=== PATIENT | female | born 1965 | race Caucasian/White ===

== ENCOUNTER 2018-08-04 02:29 | Inpatient (IN) | payer OTHER ==
[~2018-08-04] VITALS: Ht 157.5 cm; Wt 54.4 kg
[~2018-08-04 02:29] MED LIST: AMLO5TAB4 PO; BENA20TA9 PO; DIPH25CA83 PO; ESCI10TA PO; FAMO20TA8 PO; GABA-536 PO; HYDR-4354 PO; LIPA1CAP8; LIPA1CAP8 PO; ONDA4TAB10; QUET25TA PO
--- NOTE | 2018-08-04 09:57 | NUR ---
ADMISSION NOTE PT ARRIVED AT THIS TIME VIA [place], A/O X4, BREATHING EVEN AND UNLABORED, NO S/S OF ANY DISTRESS OR PAIN, IV IS PATENT AND INTACT, PT IS AMBULATORY, SAFETY PRECAUTIONS IN PLACE, CALL LIGHT WITHIN REACH, WILL MONITOR ACCORDINGLY.
[2018-08-04 10:30] VITALS: BP 137/89
[2018-08-04] MEDS ORDERED: ACETAMINOPHEN 325 MG TABLET PO PRN (11:30)
[2018-08-04] MEDS ORDERED: GABAPENTIN 400 MG CAPSULE PO PRN (11:30)
[2018-08-04] MEDS ORDERED: Z GUARD REMEDY 2 OZ OINT TP PRN (11:30)
[2018-08-04] MEDS ORDERED: ONDANSETRON HCL/PF 4 MG/2 ML VIAL IVP PRN (11:30)
[2018-08-04] MEDS: IV NS 0.9% 1,000 ML IV PRN ×2 (11:55→20:23)
[2018-08-04] MEDS: PANTOPRAZOLE 40 MG TABLET.DR PO SCH (11:58)
[2018-08-04] MEDS: AMYLASE/LIPASE/PROTEASE 1 CAP CAPSULE.DR PO SCH ×2 (12:44→17:00)
[2018-08-04] MEDS: BENAZEPRIL HCL 20 MG TABLET PO SCH (16:21)
[2018-08-04] MEDS: ENOXAPARIN SODIUM 40 MG/0.4 ML DISP.SYRIN SQ SCH (16:22)
[2018-08-04] MEDS: HYDROMORPHONE INJ 2 MG/ML DISP.SYRIN IV PRN ×2 (17:32→21:40)
--- NOTE | 2018-08-04 18:17 | NUR ---
RN CLOSING NOTE PT IN BED AT LOWEST AND LOCKED POSITION WITH SIDE RAILS UP X2, AWAKE AND ALERT X4 BREATHING EVEN LABORED ON RA WITH NO S/S OF ANY DISTRESS OR PAIN, IV IS PATENT AND INTACT, AWAITING GI CONSULT, SAFETY PRECAUTIONS IN PLACE, CALL LIGHT WITHIN REACH, ALL NEEDS ATTENDED TO, WILL ENDORSE TO MICROBIOLOGY MANAGER RN FOR KAREN.
--- NOTE | 2018-08-04 19:15 | NUR ---
RN PM OPENING NOTE PT WAS RECEIVED BEDSIDE REPORT RECIEVED FROM ANNABELLE LACY. BED IN LOWEST AND LOCKED POSITION WITH SIDE RAILS X2, A/O X4 BREATHING EVEN AND UNLABORED ON RA, NO S/S OF ANY DISTRESS. POC REVIEWED QUESTIONS CONCERNS ADDRESSED. IV IS PATENT AND INTACT, SAFETY PRECAUTIONS IN PLACE, CALL LIGHT WITHIN REACH. PATIENT VERBALIZED UNDERSTANDING TO CALL FOR ASSISTANCE IF NEEDED.
[2018-08-04 20:26] VITALS: BP 120/79
[2018-08-04] MEDS: FAMOTIDINE (20 MG) 20 MG TABLET PO SCH (21:38)
[2018-08-05] MEDS: HYDROMORPHONE INJ 2 MG/ML DISP.SYRIN IV PRN ×5 (03:49→22:30)
[2018-08-05] MEDS: IV NS 0.9% 1,000 ML IV PRN ×2 (03:49→18:23)
--- NOTE | 2018-08-05 06:30 | NUR ---
RN CLOSING NOTES PT IN BED AT LOWEST AND LOCKED POSITION WITH SIDE RAILS UP X2, BREATHING EVEN AND UNLABORED AWAKE AND ALERT X4 WITH NO S/S OF ANY PAIN OR DISTRESS NOTED AT THIS TIME, IV IS PATENT AND INTACT, PT RESTING COMFORTABLY IN BED, SEEN WITH EYES CLOSED. CALL LIGHT WITHIN REACH.
[2018-08-05 06:32] LABS: BASOPHILS % (AUTO) 0.9 % (0.0-2.0); EOSINOPHILS % (AUTO) 1.5 % (0.0-6.0); HEMATOCRIT 32 % (33-45); HEMOGLOBIN 10.7 g/dL (11.5-14.8); LYMPHOCYTES # (AUTO) 1.8 /CMM (0.8-4.8); LYMPHOCYTES % (AUTO) 45.1 % (20.0-44.0); MEAN CORPUSCULAR HGB CONC 33 g/dl (31.0-36.0); MEAN CORPUSCULAR VOLUME 91 fL (82-100); MONOCYTES # (AUTO) 0.4 /CMM (0.1-1.30); MONOCYTES % (AUTO) 8.8 % (2.0-12.0); NEUTROPHILS # (AUTO) 1.8 /CMM (1.8-8.9); NEUTROPHILS % (AUTO) 43.7 % (43.0-81.0); PLATELET COUNT (AUTO) 169 /CMM (150-450); WHITE BLOOD COUNT (AUTO) 4.1 K/uL (4.3-11.0)
[2018-08-05 06:53] LABS: THYROID STIMULATING HORMONE 0.569 uIU/mL (0.358-3.74)
[2018-08-05 07:05] LABS: ALBUMIN 3.1 g/dL (3.4-5.0); BILIRUBIN,TOTAL 0.7 mg/dL (0.2-1.0); CALCIUM, SERUM 8.8 mg/dL (8.5-10.1); CREATININE 0.8 mg/dL (0.6-1.3); MAGNESIUM 1.9 mg/dL (1.8-2.4); PHOSPHORUS 4.5 mg/dL (2.5-4.9); POTASSIUM 4.3 mmol/L (3.5-5.1); TOTAL PROTEIN, SERUM 6.6 g/dL (6.4-8.2)
--- NOTE | 2018-08-05 07:30 | NUR ---
RN MS NOTES PT IN BED, AWAKE, ALERT AND ORIENTED, WITH COMPLAINT OF ABDOMINAL PAIN, NO NAUSEA, VOMITING OR DIARRHEA, RESPIRATIONS NORMAL, CALL LIGHT WITHIN REACH, ASSISTED WITH NEEDS.
[2018-08-05 08:38] VITALS: BP 144/84
[2018-08-05] MEDS: PANTOPRAZOLE 40 MG TABLET.DR PO SCH (08:39)
[2018-08-05] MEDS: AMLODIPINE BESYLATE 5 MG TABLET PO SCH (08:39)
[2018-08-05] MEDS: BENAZEPRIL HCL 20 MG TABLET PO SCH ×2 (08:39→17:20)
[2018-08-05] MEDS: ESCITALOPRAM OXALATE (10 MG) 10 MG TABLET PO SCH (08:39)
[2018-08-05] MEDS: AMYLASE/LIPASE/PROTEASE 1 CAP CAPSULE.DR PO SCH ×3 (08:42→17:19)
--- NOTE | 2018-08-05 12:26 | NUR ---
Social service consult requested by FADI Rowland for alcohol abuse. Pt. is a 53 year old female who was admitted to [facility] for pancreatitis. SW met with pt. bedside. Pt. is alert and oriented x 4. Pt. appeared well-groomed. Pt. was pleasant and cooperative with SW during the assessment. Pt. states she currently resides in a sober living in [place]. Pt. is unable to provide physical address stating she just moved in last week. However, pt. states she is knows how to get there. Pt. has a [employer] coding assistant named Erickson who assists pt. with placement etc. Pt. has a psychiatric diagnosis of Schizophrenia, Bipolar, PTSD and ADHD. Pt's psychotropic medications include Trazodone, Seroquel, and Prozac. Pt's takes Norvasc for high blood pressure. Pt. denies suicidal and homicidal ideations and visual/auditory hallucinations at this time. Pt. receives GR and Food stamps monthly. Pt. has a history of alcohol abuse and last used on Mother's day. Pt. was sober for a year prior to that. Pt. states she was drinking 2 cans of 24 ounces of Old [place] 800 malt liquor and 1/2 pint of vodka daily. Pt. has been to several alcohol treatment program such as in [place] and [facility] in [place]. Pt. completed treatment at [facility] a few or two ago. Pt. attends AA meeting once a week at her sober living. CONNIE also gave [facility] contact since pt. stated she might have to leave her sober living in the next few weeks. CONNIE offered pt. referrals for alcohol treatment programs, however pt. declined stating she has all the resources and Erickson can assist her with referrals. No other social service needs are requested at this time. SW is available, if needed.
--- NOTE | 2018-08-05 12:37 | NUR ---
RN MS NOTES PT AWAKE, WALKS INSIDE HER ROOM WITH STEADY GAIT, PAIN MEDICATION GIVEN FOR PAIN MANAGEMENT, NOT IN DISTRESS, SEEN BY MANAGEMENT INFORMATION SYSTEMS DIRECTOR MADDISON, CALL LIGHT WITHIN REACH, NEEDS ATTENDED.
[2018-08-05 16:28] VITALS: BP 136/84
--- NOTE | 2018-08-05 18:36 | NUR ---
RN MS NOTES PT IN BED, AWAKE, ALERT AND ORIENTED, WATCHING TV, PAIN MEDICATION GIVEN FOR PAIN MANAGEMENT, IV FLUIDS INFUSING WELL, TOLERATING CURRENT DIET WELL, PT SEEN BY DR. CAMARILLO, PLAN OF CARE DISCUSSED WITH PT, VERBALIZED UNDERSTANDING, ALL NEEDS ATTENDED.
--- NOTE | 2018-08-05 19:51 | NUR ---
RN MS OPENING NOTES RECEIVED PATIENT IN BED AWAKE, ALERT AND ORIENTED X4, VERBALLY RESPONSIVE, ABLE TO MAKE NEEDS KNOWN. BREATHING EVEN AND UNLABORED. NO SOB NOTED. TOLERATING ROOM AIR. CURRENTLY WITH NO COMPLAINTS OF PAIN OF PAIN OR DISCOMFORT. NO FACIAL GRIMACING. IV ON LEFT HAND INTACT AND PATENT WITH IVF INFUSING. SKIN DRY AND WARM TO TOUCH. AFEBRILE. ALL OTHER NEEDS MET. SAFETY MEASURES IN PLACE. CALL LIGHT WITHIN REACH. WILL CONTINUE TO MONITOR.
[2018-08-05 20:00] VITALS: BP 142/87
[2018-08-05] MEDS: diphenhydrAMINE HCL 25 MG CAPSULE PO PRN (20:11)
[2018-08-05] MEDS: FAMOTIDINE (20 MG) 20 MG TABLET PO SCH (21:03)
[2018-08-05] MEDS: ENOXAPARIN SODIUM 40 MG/0.4 ML DISP.SYRIN SQ SCH (21:03)
--- NOTE | 2018-08-06 01:00 | NUR ---
RN MS NOTES PATIENT IS REFUSING IV FLUIDS TONIGHT DUE TO CONSTANT BEEPING DESPITE A WORKING IV LINE. PATIENT ALSO REFUSED TO HAVE A NEW LINE REMOVED. PATIENT ALSO REFUSING IVF DUE TO CONSTANTLY GOING TO THE BATHROOM. REQUESTED TO HAVE IT OFF FOR THE NIGHT SO SHE CAN SLEEP. PER PATIENT SHE IS DRINKING A LOT OF WATER. WILL CONTINUE TO MONITOR.
--- NOTE | 2018-08-06 06:46 | NUR ---
RN MS CLOSING NOTES PATIENT RESTING IN BED. NO ACUTE CHANGES THROUGHOUT SHIFT. BREATHING EVEN AND UNLABORED. TOLERATING ROOM AIR. CURRENTLY WITH NO COMPLAINTS OF PAIN OR DISCOMFORT. IV ON LEFT HAND INTACT AND PATENT WITH IVF INFUSING. ALL OTHER NEEDS MET. SAFETY MEASURES IN PLACE. CALL LIGHT WITHIN REACH. WILL ENDORSE TO ONCOMING NURSE FOR KAREN.
[2018-08-06] MEDS: HYDROMORPHONE INJ 2 MG/ML DISP.SYRIN IV PRN ×2 (07:15→11:25)
--- NOTE | 2018-08-06 07:30 | NUR ---
MS RN OPENING NOTES RECEIVED PT IN BED. AWAKE, A/O X4, BRP. TOLERATING RA, WITH NO ACUTE RESPIRATORY DISTRESS NOTED. PT IS CURRENTLY IN PAIN AND JUST HAD DILAUDID AT 0715 PER NIGHT NURSE/ANJELICA. PT AWARE IT WILL TAKE TIME TO BE EFFECTIVE. PT CONCERNED OF A SOLE STAINER REGARDING A PLACE WHERE SHE COULD STAY AND HOPEFULLY SHE'LL GET DISCHARGE LATER TODAY. PT STATED NOT IN A ROSADO AT THE MOMENT AND OKAY TO WAIT FOR SOLE STAINER. PT HAS IVF NS AT 125ML/HR TO LEFT HAND G18, INTACT AND FLUID INFUSING WELL. PT KEPT COMFORTABLE. PT'S BED IN LOWEST, LOCKED POSITION WITH SR X2. CALL LIGHT AND FLUID WITHIN REACH. WILL CONTINUE PLAN OF CARE.
[2018-08-06] MEDS: PANTOPRAZOLE 40 MG TABLET.DR PO SCH (08:20)
[2018-08-06] MEDS: AMYLASE/LIPASE/PROTEASE 1 CAP CAPSULE.DR PO SCH ×2 (08:20→12:22)
[2018-08-06] MEDS: ESCITALOPRAM OXALATE (10 MG) 10 MG TABLET PO SCH (08:20)
[2018-08-06] MEDS: BENAZEPRIL HCL 20 MG TABLET PO SCH (08:21)
[2018-08-06 08:22] VITALS: BP 150/102
[2018-08-06] MEDS: AMLODIPINE BESYLATE 5 MG TABLET PO SCH (08:22)
[2018-08-06] MEDS: IV NS 0.9% 1,000 ML IV PRN (09:52)
[2018-08-06] MEDS: diphenhydrAMINE HCL 25 MG CAPSULE PO PRN (12:22)
--- NOTE | 2018-08-06 15:38 | NUR ---
MS COMPUTER PROGRAMMING MANAGER NOTES PT DISCHARGED TO HOME. AMBULATORY. TOLERATING RA WITH NO ACUTE RESPIRATORY DISTRESS NOTED. PT DENIES PAIN OR ANY DISCOMFORT AT THE TIME OF DISCHARGE. SKIN INTACT, NO PICTURES TAKEN TO FILE IN THE CHART. REVIEWED AND SIGNED DISCHARGE PAPERS AND INVENTORY LIST, NO BELONGINGS MISSING; ALL BELONGINGS WITH THE PT. PT'S MEDICATIONS RETURNED TO PT. ALL NEEDS AND CARE ATTENDED. LEFT HAND PIV, REMOVED AND APPLIED DRY DRESSING. PT LEFT THE UNIT AT 1535, ESCORTED BY RUBBER CHEMIST TO THE LOBBY, AND PREFERS TO WALK THAN TO SIT ON THE WHEELCHAIR. CN AND MD AWARE OF DISCHARGE.
== END 2018-08-06 15:36 | disposition home or self-care (01) | DRG 282 ==
LOC: MED 09:42
PROVIDERS: ADMIT Nurse Practitioner Acute Care; ATTEND Nurse Practitioner Acute Care
DX: K85.90 Acute pancreatitis without necrosis or infection, unspecified (principal); K83.1 Obstruction of bile duct; E11.65 Type 2 diabetes mellitus with hyperglycemia; F20.9 Schizophrenia, unspecified; E11.9 Type 2 diabetes mellitus without complications; F10.10 Alcohol abuse, uncomplicated; D63.8 Anemia in other chronic diseases classified elsewhere; F19.10 Other psychoactive substance abuse, uncomplicated; I10 Essential (primary) hypertension; K86.1 Other chronic pancreatitis; F31.9 Bipolar disorder, unspecified; Z98.890 Other specified postprocedural states; F90.9 Attention-deficit hyperactivity disorder, unspecified type; Z79.899 Other long term (current) drug therapy; Z72.0 Tobacco use; Z88.8 Allergy status to other drugs, medicaments and biological substances; Z88.6 Allergy status to analgesic agent; Z88.5 Allergy status to narcotic agent; Z91.013 Allergy to seafood; Z83.3 Family history of diabetes mellitus; Z80.3 Family history of malignant neoplasm of breast; Z82.49 Family history of ischemic heart disease and other diseases of the circulatory system
CPT/HCPCS: 36415; 80053-TC; 80061-TC; 80305; 83540-TC; 83690-TC; 83735-TC; 84100-TC; 84443-TC; 85025-TC; 87081-TC; G0378; J1170; J1650; J2405; J7030; Q0163

== ENCOUNTER 2019-06-01 22:54 | Emergency (ER) | payer OTHER ==
[~2019-06-01] VITALS: Ht 157.5 cm; Wt 44.9 kg
[~2019-06-01 22:54] MED LIST changes: +ONDA-97; -ONDA4TAB10
[2019-06-01 23:59] LABS: APPEARANCE,URINE Clear (CLEAR); BILIRUBIN,URINE Negative (NEGATIVE); BLOOD, URINE Trace-lysed Ery/uL (NEGATIVE); COLOR,URINE Yellow (YELLOW); KETONES,URINE Negative (NEGATIVE); LEUKOCYTE ESTERASE ,URINE Negative (NEGATIVE); NITRITE, URINE Negative (NEGATIVE); PH,URINE 7.5 (5.0-8.0); PROTEIN,URINE Negative (NEGATIVE); UGLUCOSE Negative (NEGATIVE); UROBILINOGEN,URINE 0.2 EU/dL (0.2)
--- NOTE | 2019-06-01 23:59 | NUR ---
PT PRESENTED TO THE ER WITH A C/O HIGH BP AND LUQ ABD PAIN. PT IS ALSO C/O CHRONIC SCIATIC PAIN. PT STATED THAT SHE RAN OUT OF HER BP MEDICATIONS 2 WKS AGO AND WAS NOT ABLE TO GET THEM FROM [facility]- WHERE SHE USUALLY GOES. PT AMBULATED TO ER 12 WITH A STEADY GAIT. PT WAS PLACED ON THE MONITOR AND CONTINUOUS POX. PT STATED THAT SHE DRANK ("HAD A BREAKFAST DRINK") THIS MORNING AND SHE HAS NOT TAKEN HER MEDICINE FOR PANCREATITIS. PT ALSO SMOKES MARIJUANA. WILLIAM SYED IS AT THE BEDSIDE EVALUATING THE PT.
[2019-06-02] MEDS ORDERED: HYDROMORPHONE INJ 0.5 MG/0.5 ML SYRINGE IV ONE
[2019-06-02] MEDS ORDERED: hydrALAZINE HCL IV 20 MG VIAL IV ONE
[2019-06-02] MEDS ORDERED: IV NS 0.9% 1,000 ML BAG IV ONE
[2019-06-02] MEDS ORDERED: ONDANSETRON HCL/PF 4 MG/2 ML VIAL IV ONE
[2019-06-02] MEDS ORDERED: ONDANSETRON HCL/PF 4 MG/2 ML VIAL ONE (00:01)
[2019-06-02] MEDS ORDERED: hydrALAZINE HCL IV 20 MG VIAL ONE (00:01)
[2019-06-02] MEDS ORDERED: HYDROMORPHONE 1 MG/1 ML DISP.SYRIN ONE (00:01)
[2019-06-02 00:02] LABS: BASOPHILS # (AUTO) 0.1 /CMM (0.0-0.2); BASOPHILS % (AUTO) 0.5 % (0.0-2.0); EOSINOPHILS % (AUTO) 0.7 % (0.0-6.0); HEMATOCRIT 37 % (33-45); HEMOGLOBIN 12.4 g/dL (11.5-14.8); LYMPHOCYTES # (AUTO) 1.2 /CMM (0.8-4.8); LYMPHOCYTES % (AUTO) 11.3 % (20.0-44.0); MEAN CORPUSCULAR HGB CONC 34 g/dl (31.0-36.0); MEAN CORPUSCULAR VOLUME 90 fL (82-100); MONOCYTES # (AUTO) 0.3 /CMM (0.1-1.30); MONOCYTES % (AUTO) 3.1 % (2.0-12.0); NEUTROPHILS # (AUTO) 9.2 /CMM (1.8-8.9); NEUTROPHILS % (AUTO) 84.4 % (43.0-81.0); PLATELET COUNT (AUTO) 223 /CMM (150-450); RED BLOOD CELL COUNT(AUTO) 4.08 MIL/uL (4.0-5.2); WHITE BLOOD COUNT (AUTO) 10.9 K/uL (4.3-11.0)
[2019-06-02 00:09] LABS: CALCIUM, SERUM 9.5 mg/dL (8.5-10.1); CREATININE 0.8 mg/dL (0.6-1.3); POTASSIUM 4.2 mmol/L (3.5-5.1)
[2019-06-02 00:15] LABS: BACTERIA,URINE Rare /HPF (None Seen); SQUAMOUS EPITHELIAL CELL,UR Few /HPF (None Seen); WBC,URINE NONE SEEN /HPF (0-3)
[2019-06-02 00:15] LABS: ALBUMIN 4.1 g/dL (3.4-5.0); BILIRUBIN,DIRECT 0.1 mg/dL (0.0-0.2); BILIRUBIN,TOTAL 0.6 mg/dL (0.2-1.0); TOTAL PROTEIN, SERUM 8.4 g/dL (6.4-8.2)
--- NOTE | 2019-06-02 00:19 | NUR ---
PT REC'D ALL MEDICATION ORDERED.
--- NOTE | 2019-06-02 00:45 | NUR ---
B SEBASTIAN, PAC IS AT THE BEDSIDE SPEAKING TO THE PT.
--- NOTE | 2019-06-02 01:07 | NUR ---
IV removed. Catheter intact and site benign. Pressure and 4x4 applied to site. No bleeding noted. Patient discharged to home in stable condition. Written and verbal after care instructions given. Patient verbalizes understanding of instruction. PT IS ABLE TO TAKE THE BUS HOME, BUT WILL WAIT IN THE LOBBY UNTIL THEY ARE RUNNING. PT'S BP IS NOW 169/97. Matias CORTES, PAC IS AWARE AND PT IS CLEARED FOR DISCHARGE. PT AMBULATED OUT WITH A STEADY GAIT. VSS. NAD NOTED.
[2019-06-02 01:09] VITALS: BP 169/97
== END 2019-06-02 01:09 | disposition home or self-care (01) ==
LOC: ER 22:57
DX: R10.13 Epigastric pain (principal); I10 Essential (primary) hypertension; K21.9 Gastro-esophageal reflux disease without esophagitis; G89.29 Other chronic pain; M54.9 Dorsalgia, unspecified; Z85.3 Personal history of malignant neoplasm of breast; Z95.5 Presence of coronary angioplasty implant and graft; Z98.890 Other specified postprocedural states; Z88.5 Allergy status to narcotic agent; Z88.6 Allergy status to analgesic agent; Z88.9 Allergy status to unspecified drugs, medicaments and biological substances; Z88.8 Allergy status to other drugs, medicaments and biological substances; Z79.899 Other long term (current) drug therapy; Z91.013 Allergy to seafood
CPT/HCPCS: 36415; 80048; 80076; 81001; 83690; 85025; 93005; 96374; 96375; 99285; J0360; J1170; J2405; J7030; 81000-TC